=== PATIENT | male | born 1970 | race Caucasian/White ===

== ENCOUNTER 2018-08-27 10:56 | Observation (INO) | payer OTHER, SELFPAY ==
[2018-08-27] VITALS (11 sets, daily range): BP systolic 157–205; BP diastolic 107–127; PULSE 67–80; RESP 15–20; TEMP 36.4–36.9; O2SAT 96–99; BMI 28.4
--- NOTE | 2018-08-27 | DI.US.S_ITS ---
PROCEDURE: US CAROTID DOPPLER BI INDICATIONS: TIA TECHNIQUE: Color and pulse Doppler interrogation was performed of both carotid systems, with image documentation and velocity measurements. COMPARISON: None. FINDINGS: Stenosis calculations are based on SRU (Society of Radiologists in Ultrasound) criteria. Right side: Brachial blood pressure: Not obtained . Common carotid artery peak systolic velocity: 66 cm/sec. Internal carotid artery peak systolic velocity: 66 cm/sec. Internal carotid artery end diastolic velocity: 29 cm/sec. External carotid artery peak systolic velocity: 75 cm/sec. ICA/CCA peak systolic ratio: 1.0. Chen scale imaging description: No plaque Percent internal carotid artery stenosis: None. Vertebral artery: Flow direction is antegrade. Left side: Brachial blood pressure: 168/111 mm Hg. Common carotid artery peak systolic velocity: 68 cm/sec. Internal carotid artery peak systolic velocity: 60 cm/sec. Internal carotid artery end diastolic velocity: 23 cm/sec. External carotid artery peak systolic velocity: 64 cm/sec. ICA/CCA peak systolic ratio: 0.89. Chen scale imaging description: No plaque Percent internal carotid artery stenosis: None. Vertebral artery: Flow direction is antegrade. IMPRESSION: No ICA stenosis. Hypertension at the time of the examination. Dictated by: Mareclo Schwarz M.D. on 08/27/2018 at 16:43 Approved by: Marcelo Schwarz M.D. on 08/27/2018 at 16:45
--- NOTE | 2018-08-27 | DI.ECHO.S_ITS ---
[facility] +---------+ : : [address] : [address] : : : : [place], : : : : [place] [id number] : : : : Phone: [phone] Formerly [id number] Echocardiogram Report + + :Name: BRUNO OLSEN Study Date: 08/28/2018 Height: 69 in : :[facility] Weight: 192 lb : : Gender: Male BSA: 2.0 m2 : :: 1970 Age: 48 yrs BP: 144/98 mmHg: :Reason For Study: TIA : :Ordering Physician: [place] : :Hospitalist Performed By: Abdulaziz Campbell : :Referring: STEPHANIE FRAZIER : + + Interpretation Summary The left ventricle is normal in size. Left ventricular wall thickness is mildly increased. The ejection fraction is estimated to be 60-65%. The right ventricle is normal in size and function. Injection of contrast with Valsalva documented an interatrial shunt. -Overall this echo shows normal biventricular systolic function with evidence of hypertensive heart disease and small interatrial shunt, likely secondary to a PFO. -No prior echo for comparison. Procedure: A two-dimensional transthoracic echocardiogram with color flow and Doppler was performed. The study quality was technically good. There is no prior echocardiogram noted for this patient. A saline contrast injection was performed to assess for cardiac shunting. The patient was in normal sinus rhythm during the exam. Left Ventricle: The left ventricle is normal in size. Left ventricular wall thickness is mildly increased. Trabeculae near apex are visualized. No thrombus is observed. The ejection fraction is estimated to be 60-65%. There are no focal wall motion abnormalities. Diastolic parameters suggest a relaxation abnormality of the left ventricle, consistent with probable normal filling pressures. However, the tissue Doppler velocities of the mitral annulus are abnormally low. Right Ventricle: The right ventricle is normal in size and function. Atria: The left atrium is mildly dilated. Borderline right atrial enlargement. Injection of contrast with valsalva documented an interatrial shunt. Patient released valsalva at peak opacification; bubbles are then seen on left side w/in 3 beats. Mitral Valve: The mitral valve is normal in structure and function. There is no mitral regurgitation noted. Aortic Valve: The aortic valve is normal in structure and function. There is no aortic valve stenosis. There is trace aortic regurgitation. Tricuspid Valve: The tricuspid valve is normal. Pulmonary artery pressures cannot be estimated because of the lack of a measurable TR jet velocity. Pulmonic Valve: The pulmonic valve leaflets are thin and pliable; valve motion is normal. There is a trace or physiologic amount of pulmonic regurgitation. Great Vessels: The aortic root is normal size. The ascending aorta is mildly enlarged. The pulmonary artery is normal size. The IVC is of normal diameter and collapses greater than 50% with a sniff. This suggests a low right atrial pressure of 3 mm Hg. Pericardium/ Pleura There is no pericardial effusion. There is no pleural effusion. MMode/2D Measurements & Calculations LVIDd: 5.1 cm LVOT diam: 2.3 cm LVIDs: 3.8 cm Ao root diam: 3.2 cm IVSd: 1.4 cm asc Aorta Diam: 3.4 cm LVPWd: 1.0 cm Ao Arch Diam (Prox Trans): 3.1 cm LV dalton. diameter/BSA (cm/m^2): 2.5 LV sys. diameter/BSA (cm/m^2): 1.9 FS: 25.0 % EPSS: 0.31 cm LA A2 area: 21.4 cm2 RA long axis: 4.4 cm LA A4 area: 21.3 cm2 RA area: 18.2 cm2 LA length (vol): 5.1 cm RA vol: 64.3 ml LA vol: 75.9 ml RA : 31.7 ml/m2 LA vol index: 37.4 ml/m2 Doppler Measurements & Calculations Ao V2 max: 132.8 cm/sec LVOT Max Erick: 88.2 cm/sec Ao V2 mean: 96.8 cm/sec LV V1 max P.1 mmHg Ao V2 VTI: 25.2 cm LV V1 VTI: 17.5 cm Ao max P.1 mmHg Ao mean P.9 mmHg BRONSON(I,D): 2.8 cm2 MV E max erick: 49.7 cm/sec BRONSON(V,D): 2.7 cm2 MV A max erick: 63.6 cm/sec BRONSON indexed to BSA (cm^2/m^2): 1.4 MV E/A: 0.78 sev ratio: 0.69 Med Peak E' Erick: 5.6 cm/sec E/E' med: 8.9 Lat Peak E' Erick: 7.1 cm/sec E/E' lat: 7.0 E/e' average: 8.0 MV dec time: 0.19 sec PA V2 max: 132.2 cm/sec PA V2 mean: 80.4 cm/sec PA mean P.0 mmHg PA pr(Accel): 36.6 mmHg Electronically signed by: Sonny Barajas M.D. on Reading Physician:08/28/2018 12:18 PM
--- NOTE | 2018-08-27 11:04 | ED_ITS ---
HPI - Neuro Symptoms/Deficit General Chief Complaint: Neuro Symptoms/Deficit Stated Complaint: code stroke Time Seen by Provider: 08/27/18 11:03 Source: patient and EMS Mode of arrival: EMS Limitations: no limitations History of Present Illness HPI Narrative: Patient is a 48-year-old male here for evaluation of a potential stroke. Approximately 30 min prior to arrival here in the emergency department he was at work when he noted that he was having problems finding words to say and also slurring his words. He states that he had no other symptoms associated with this however he did acknowledge that he was having problems with the words. He states that he had a similar symptom last Saturday unsure how long the symptoms lasted. Before that never had any problems like this. Has not tried anything for prior to arrival. EMS reported his blood glucose level greater than 100. Related Data Home Medications Medication Instructions Recorded Confirmed aspirin 81 mg PO QPM 08/27/18 08/27/18 lisinopril 20 mg PO QPM 08/27/18 08/27/18 metoprolol succinate 25 mg PO BID 08/27/18 08/27/18 nitroglycerin [Nitrostat] 0.4 mg SUBLINGUAL PRN PRN 08/27/18 08/27/18 rosuvastatin 40 mg PO QPM 08/27/18 08/27/18 Allergies Allergy/AdvReac Type Severity Reaction Status Date / Time No Known Drug Allergies Allergy Verified 08/27/18 15:10 Review of Systems Review of Systems All systems reviewed & are unremarkable except as noted in HPI and below Neurologic Comments: Word-finding issues, slurring his words, tingling to his left forearm PFSH Medical History HLD (hyperlipidemia) (Acute) Slurred speech (Acute) HTN (hypertension) (Chronic) NIDIA (obstructive sleep apnea) (Chronic) Surgical History No pertinent past surgical history (Acute) Family History Father Hypertension Hyperlipidemia Atrial fibrillation Grandfather CAD (coronary artery disease) Social History household members: spouse Smoking Status: Never smoker alcohol intake: never Exam Initial Vital Signs Initial Vital Signs: Vital Signs Pulse Rate 75 08/27/18 11:30 Respiratory Rate 15 08/27/18 11:30 Blood Pressure 186/120 H 08/27/18 11:30 Pulse Oximetry 96 08/27/18 11:30 Const General: cooperative, healthy appearing, comfortable, well developed, well groomed and No acute distress Orientation: alert, awake and oriented x3 [facility] Head: normal to inspection and normocephalic Ears: hearing grossly normal bilaterally Nose: external nose normal Face and sinus: normal facial exam Mouth: oral mucosae normal Eyes Pupils: PERRL EOM: EOM intact bilaterally Neck Neck: normal visual inspection Resp Effort & Inspection: normal respiratory effort Auscultation: clear to auscultation bilaterally Cardio Rate: regular rate Rhythm: regular rhythm Heart Sounds: no murmurs Pulses: radial pulses present GI Inspection: non-distended Palpation: soft, No firm and No tender Back/Spine/Pelvis Back: No CVA tenderness Skin Lesions: no lesions Rashes: no rashes Neuro General: alert, awake, oriented x3, no meningeal signs, not confused and not obtunded Cranial Nerves: CN's II-XI intact bilaterally, PERRL and tongue midline Cognition: normal cognition Speech: speech normal and no expressive aphasia (Did not have an expressive aphasia however 1 point did seem to the stumble over his words) Motor: muscle tone normal throughout, strength 5/5 throughout and no movement abnormalities noted Sensory Exam: no sensory deficits noted Coordination: [id number] test normal and [id number] test normal Extrem General: normal to inspection, capillary refill normal and No edema Psych Appearance: grossly normal and well kempt Scores ABCD2 Age >= 60 years: no Initial BP. Either SBP >= 140 or DBP >= 90.: yes Clinical features of the TIA: speech disturbance without weakness Duration of symptoms: 10-59 minutes History of diabetes: no ABCD2 Score: 3 NIH Stroke Scale Level of Conciousness: Alert, keenly responsive Ask month/age: Answers both questions correctly. Open/close eyes, close hand: Performs both tasks correctly Best gaze horizontal: Normal Visual moses: No visual loss Facial palsy: Normal symetrical movement Left arm drift: No drift for full 10 sec Right arm drift: No drift for full 10 sec Left leg drift: No drift for full 10 sec Right leg drift: No drift for full 10 sec Limb ataxia: Absent Sensory on face/arms/legs: Normal, no sensory loss Best language: No aphasia, normal Dysarthria: Normal Extinction or inattention: No abnormality Total NIH Stroke scale score: 0 Course Orders Ordered: ED Orders 08/27/18 11:02 Basic Metabolic Panel Stat Complete Blood Count AUTO DIFF Stat Ethanol (ETOH) Stat 08/27/18 11:10 EKG-12 Lead Stat 08/27/18 11:20 CT angio head and neck Stat CT head/brain wo con Stat 08/27/18 15:18 Education, smoking cessation ONGOING 08/27/18 15:37 Consult to Respiratory Therapy Evaluate & Treat 08/27/18 17:02 Hemoglobin A1C % Routine Lipid Panel Routine TSH [Thyroid Stimulating Hormone] Routine 08/28/18 05:00 Complete Blood Count AUTO DIFF Routine Comprehensive Metabolic Panel Routine Aspirin (Aspirin Ec) 81 mg PO DAILY LUCIEN Labetalol HCl (Trandate) 10 mg IV Q6H PRN PRN Reason: BP >180/100 Lisinopril (Zestril) 20 mg PO DAILY LUCIEN Metoprolol Succinate (Toprol Xl) 25 mg PO BID LUCIEN Nitroglycerin (Nitrostat) 0.4 mg SL [id number] PRN PRN Reason: Chest Pain Rosuvastatin Calcium (Crestor) 40 mg PO BEDTIME LUCIEN Discontinued Medications Aspirin (Aspirin Chew) 324 mg PO NOW ONE Stop: 08/27/18 13:50 Last Admin: 08/27/18 13:57 Dose: 324 mg Sodium Chloride (Normal Saline 0.9%) 1,000 mls @ 1,000 mls/hr IV BOLUS ONE Stop: 08/27/18 11:54 Last Infusion: 08/27/18 13:57 Dose: 0 mls/hr Infusion: 08/27/18 13:41 Dose: 1,000 mls/hr Admin: 08/27/18 12:30 Dose: 1,000 mls/hr Vital Signs - 8 hr 08/27/18 11:30 08/27/18 12:00 08/27/18 12:30 Temperature Pulse Rate 75 80 79 Respiratory Rate 15 18 18 Blood Pressure Blood Pressure [Right Arm] 186/120 H 205/119 H 165/127 H Pulse Oximetry 96 99 98 08/27/18 13:00 08/27/18 13:30 08/27/18 14:15 Temperature 98.4 F Pulse Rate 77 74 68 Respiratory Rate 15 18 18 Blood Pressure 168/111 H Blood Pressure [Right Arm] 170/124 H 167/117 H Pulse Oximetry 98 08/27/18 15:35 Temperature 97.8 F Pulse Rate 67 Respiratory Rate 20 Blood Pressure 158/116 H Blood Pressure [Right Arm] Pulse Oximetry 97 MDM - Neuro Symptoms/Deficit Lab Data Attestation: I reviewed the patient's lab results. Result diagrams: 08/27/18 11:02 08/27/18 11:02 Lab Results 08/27/18 08/27/18 08/27/18 Range/Units 11:02 11:02 Unknown WBC 6.8 (4.5-11.0) X10^3/uL RBC 5.38 (4.5-5.9) X10^6/uL Hgb 15.5 (13.5-17.5) g/dL Hct 44.5 (41-53) % MCV 82.6 (80-100) fL MCH 28.8 (26-34) PG MCHC 34.9 (30-36) % RDW 12.6 (11.6-14.8) % Plt Count 380 (150-400) X10^3/uL Neut % (Auto) 72.0 (50-75) % Lymph % (Auto) 20.3 L (25-40) % [place] % (Auto) 6.8 (3-14) % Eos % (Auto) 0.7 L (2-4) % Baso % (Auto) 0.2 (0-2) % Neut # (Auto) 4900 (3677-9313) /uL PT 11.2 (10.1-12.7) SECONDS INR 1.0 (0.9-1.3) APTT 31 (26.4-36.2) SECONDS Sodium 142 (137-145) mmol/L Potassium 3.7 (3.4-5.1) mmol/L Chloride 102 (98-107) mmol/L Carbon Dioxide 28 (22-32) mmol/L BUN 13 (9-20) mg/dL Creatinine 0.80 (0.66-1.25) mg/dL Estimated GFR > 60.0 (>60) mL/min BUN/Creatinine Ratio 16.3 (6-22) Glucose 115 H (70-100) mg/dL Calcium 9.7 (8.4-10.2) mg/dL Ethyl Alcohol < 10 mg/dL Point of Care Testing Glucose POC 101 Urine Dip Bedside Urine Glucose Negative Bedside Urine Bilirubin - Negative Bedside Urine Ketone - Negative Urine Specific [place] 1.015 Bedside Urine Occult Blood - Negative Bedside Urine pH 7.5 Bedside Urine Protein - Negative Bedside Urine Urobilinogen - Negative Bedside Urine Nitrite - Negative Bedside Urine Leukocytes - Negative Esterase Imaging Data CT scan - head: Radiologist's impression: PROCEDURE: CT HEAD/BRAIN WO CON INDICATIONS: Stroke-Possible TPA TECHNIQUE: Noncontrast 4.5 mm thick angled axial sections acquired from the foramen magnum to the vertex, with coronal and sagittal reformats. For radiation dose reduction, the following was used: automated exposure control, adjustment of mA and/or kV according to patient size. COMPARISON: [facility], CT, CT ANGIO HEAD AND NECK, 08/27/2018, 10:58. FINDINGS: Image quality: Excellent. CSF spaces: Basal cisterns are patent. No extra-axial fluid collections. 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 Ventricles are normal in size and shape. Brain: No midline shift. Subcentimeter hyperdense focus in the left subinsular and white matter image 15 series 2, technically indeterminate. No intracranial masses or hemorrhage. Chen-white matter interface is normal. Skull and face: Calvarium and visualized facial bones are intact, without suspicious lesions. Sinuses: Visualized sinuses and mastoids are clear. IMPRESSION: No acute intracranial process. Findings personally telephoned and discussed with Dr. Red in the emergency department 1133 hours on 08/27/18. Dictated by: Marcelo Schwarz M.D. on 08/27/2018 at 11:29 Approved by: Marcelo Schwarz M.D. on 08/27/2018 at 11:34 CTA of head and neck: Radiologist's impression: PROCEDURE: CT ANGIO HEAD AND NECK INDICATIONS: Aphasia. Left sided weakness TECHNIQUE: Pre-contrast 4.5 mm thick sections acquired from the foramen magnum to the vertex. After the administration of intravenous contrast, 1 mm thick sections acquired from the aortic arch through the [place] of Garcia. Post-contrast 4.5 mm thick sections then re- acquired from the foramen magnum to the vertex. 3-dimensional maximum-intensity- projection (MIP) and/or volume rendering reformats were acquired of the central intracranial vasculature and neck separately. COMPARISON: None. FINDINGS: Image quality: Excellent. BRAIN: CSF spaces: Ventricles are normal in size and shape. Basal cisterns are patent. No extra-axial fluid collections. Brain: No midline shift. No intracranial bleeds or masses. Chen-white matter interface appears intact. Incidental posterior fossa arachnoid cyst. Skull and face: Calvarium and facial bones appear intact, without suspicious lesions. Orbits appear normal. Sinuses: Sinuses and mastoids are clear. HEAD CT ANGIOGRAPHY: Anterior circulation: Intracranial internal carotid arteries are normal in size and flow. The flow within the paired anterior cerebral arteries is normal and symmetric. The flow within the middle cerebral arteries is normal and symmetric. The anterior communicating artery is seen. No aneurysms are seen. Posterior circulation: Visualized portions of the vertebral arteries demonstrate normal caliber, and join to form a normal appearing basilar artery. Flow within the posterior cerebral arteries is normal and symmetric. No aneurysms are seen. NECK CT ANGIOGRAPHY: Carotid system: The great vessels demonstrate a bovine anatomy as they arise from the aortic arch. The origins of the common carotid arteries appear patent. The common carotid arteries demonstrate normal caliber and courses. Minimal left carotid calcification is present in The bifurcation regions are both widely patent. The internal carotid arteries demonstrate normal calibers and courses. Posterior circulation: The origins of the vertebral arteries both appear widely patent. The more superior extracranial portions of both vertebral arteries also demonstrate normal courses and calibers. They join to form a normal appearing basilar artery. Soft tissues: Visualized neck soft tissues demonstrate no suspicious abnormalities. Bones: Straightening of the normal cervical lordosis.. IMPRESSION: No intracranial focal stenosis or occlusion identified. No evidence of focal ICA stenosis. Minimal left carotid calcification. Any quantitative measurements of stenosis were performed using NASCET criteria. Dictated by: Marcelo Schwarz M.D. on 08/27/2018 at 11:36 ECG Data Attestation: I personally reviewed and interpreted this ECG as follows: Prior ECG tracings: not available for review Interpretation: Sinus rhythm Ventricular rate of 78 Normal axis LVH Normal QRS No ST T wave changes MDM Narrative Medical decision making narrative: Patient's blood glucose unremarkable. CT of the head and CT of the head and neck unremarkable. Patient also with improvement/resolution of symptoms while being here in the emergency department. His NIH score 0. No indication for thrombolytics. When he arrived was hypertensive with systolic blood pressure greater than 200s however it did improve without any pharmacologic intervention. Patient has a ABCD2 score of 3. NIH score 0. He was given full-dose aspirin here in the emergency department. Given the very similar symptoms that happened last Saturday which his eventually stated lasted less than 60 min and this symptoms again today I do have concern for TIA. I discussed the case with Dr. Romo will admit the patient. I discussed admission with the patient and his were at bedside expressed understanding and agreement. Critical Care Time Critical Care Time: Yes Total Critical Care Time: 40 Attestation: The high probability of a clinically significant, sudden or life threatening deterioration of the neurologic system(s) required my full and direct attention , intervention and personal management. The aggregate critical care time was [] minutes. This time is in addition to time spent performing reported procedures but includes the following: [] Data Review and interpretation [] Patient assessment and monitoring of vital signs [] Documentation [] Medication orders and management Correlation of care Discharge Plan Departure Patient Disposition: Admitted as Observation Clinical Impression: Transient cerebral ischemia, Hypertension Discharge Date/Time: 08/27/18 14:52 Interventions: ED Discharge Assessment Last Done: 08/27/18 14:06 Admit Date/Time: 08/27/18 13:03 Admit Provider: Addie Romo
[2018-08-27 11:08] LABS: Add Manual Diff / Slide Review NO; Basophils Percent Auto 0.2 % (0-2); Eosinophils Percent Auto 0.7 % (2-4); Hematocrit 44.5 % (41-53); Hemoglobin 15.5 g/dL (13.5-17.5); Lymphocytes Percent Auto 20.3 % (25-40); Mean Corpuscular HGB Conc 34.9 % (30-36); Mean Corpuscular Hemoglobin 28.8 PG (26-34); Mean Corpuscular Volume 82.6 fL (80-100); Monocytes Percent Auto 6.8 % (3-14); Neutrophils Absolute Auto 4900 /uL (3000-5900); Platelet Count 380 X10^3/uL (150-400); Red Blood Cell Count 5.38 X10^6/uL (4.5-5.9); Red Cell Distribution Width 12.6 % (11.6-14.8); White Blood Cell Count 6.8 X10^3/uL (4.5-11.0)
[2018-08-27 11:11] LABS: Prothrombin Time 11.2 SECONDS (10.1-12.7)
[2018-08-27 11:14] LABS: PTT Partial Thromboplastin Tim 31 SECONDS (26.4-36.2)
[2018-08-27 11:20] LABS: BUN Creatinine Ratio 16.3 (6-22); Blood Urea Nitrogen 13 mg/dL (9-20); Calcium 9.7 mg/dL (8.4-10.2); Carbon Dioxide 28 mmol/L (22-32); Chloride 102 mmol/L (98-107); Estimated Glomerular Filt Rate > 60.0 mL/min (>60); Ethanol (ETOH) < 10 mg/dL; Glucose 115 mg/dL (70-100); HEMOLYSIS < 15 (0-50); Potassium 3.7 mmol/L (3.4-5.1); Sodium 142 mmol/L (137-145)
--- NOTE | 2018-08-27 11:20 | DI.CT.S_ITS ---
PROCEDURE: CT ANGIO HEAD AND NECK INDICATIONS: Aphasia. Left sided weakness TECHNIQUE: Pre-contrast 4.5 mm thick sections acquired from the foramen magnum to the vertex. After the administration of intravenous contrast, 1 mm thick sections acquired from the aortic arch through the [place] of Garcia. Post-contrast 4.5 mm thick sections then re-acquired from the foramen magnum to the vertex. 3-dimensional isvxnje-mujgovuxq-cccplovlcs (MIP) and/or volume rendering reformats were acquired of the central intracranial vasculature and neck separately. COMPARISON: None. FINDINGS: Image quality: Excellent. BRAIN: CSF spaces: Ventricles are normal in size and shape. Basal cisterns are patent. No extra-axial fluid collections. Brain: No midline shift. No intracranial bleeds or masses. Chen-white matter interface appears intact. Incidental posterior fossa arachnoid cyst. Skull and face: Calvarium and facial bones appear intact, without suspicious lesions. Orbits appear normal. Sinuses: Sinuses and mastoids are clear. HEAD CT ANGIOGRAPHY: Anterior circulation: Intracranial internal carotid arteries are normal in size and flow. The flow within the paired anterior cerebral arteries is normal and symmetric. The flow within the middle cerebral arteries is normal and symmetric. The anterior communicating artery is seen. No aneurysms are seen. Posterior circulation: Visualized portions of the vertebral arteries demonstrate normal caliber, and join to form a normal appearing basilar artery. Flow within the posterior cerebral arteries is normal and symmetric. No aneurysms are seen. NECK CT ANGIOGRAPHY: Carotid system: The great vessels demonstrate a bovine anatomy as they arise from the aortic arch. The origins of the common carotid arteries appear patent. The common carotid arteries demonstrate normal caliber and courses. Minimal left carotid calcification is present in The bifurcation regions are both widely patent. The internal carotid arteries demonstrate normal calibers and courses. Posterior circulation: The origins of the vertebral arteries both appear widely patent. The more superior extracranial portions of both vertebral arteries also demonstrate normal courses and calibers. They join to form a normal appearing basilar artery. Soft tissues: Visualized neck soft tissues demonstrate no suspicious abnormalities. Bones: Straightening of the normal cervical lordosis.. IMPRESSION: No intracranial focal stenosis or occlusion identified. No evidence of focal ICA stenosis. Minimal left carotid calcification. Any quantitative measurements of stenosis were performed using NASCET criteria. Dictated by: Marcelo Schwarz M.D. on 08/27/2018 at 11:36 Approved by: Marcelo Schwarz M.D. on 08/27/2018 at 11:44
--- NOTE | 2018-08-27 11:20 | DI.CT.S_ITS ---
PROCEDURE: CT HEAD/BRAIN WO CON INDICATIONS: Stroke-Possible TPA TECHNIQUE: Noncontrast 4.5 mm thick angled axial sections acquired from the foramen magnum to the vertex, with coronal and sagittal reformats. For radiation dose reduction, the following was used: automated exposure control, adjustment of mA and/or kV according to patient size. COMPARISON: [facility], CT, CT ANGIO HEAD AND NECK, 08/27/2018, 10:58. FINDINGS: Image quality: Excellent. CSF spaces: Basal cisterns are patent. No extra-axial fluid collections. 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 Ventricles are normal in size and shape. Brain: No midline shift. Subcentimeter hyperdense focus in the left subinsular and white matter image 15 series 2, technically indeterminate. No intracranial masses or hemorrhage. Chen-white matter interface is normal. Skull and face: Calvarium and visualized facial bones are intact, without suspicious lesions. Sinuses: Visualized sinuses and mastoids are clear. IMPRESSION: No acute intracranial process. Findings personally telephoned and discussed with Dr. Red in the emergency department 1133 hours on 08/27/18. Dictated by: Marcelo Schwarz M.D. on 08/27/2018 at 11:29 Approved by: Marcelo Schwarz M.D. on 08/27/2018 at 11:34
[2018-08-27] MEDS: SODIUM CHLORIDE 0.9% 1,000 ML 1000 ML IV (12:30)
--- NOTE | 2018-08-27 12:39 | PC.NURSE ---
Pt reports L upper extremity tingling/numbness improved.
--- NOTE | 2018-08-27 12:39 | PC.NURSE ---
dr holland made aware of bp 165/127 no new orders at this time.
[2018-08-27] MEDS: ASPIRIN 81 MG TAB 324 MG PO (13:57)
--- NOTE | 2018-08-27 15:13 | PC.NURSE ---
1415 Patient arrived to floor, oriented to room and call light. Denies neurological symptoms, communicating and speaking without difficulty. at bedside. Awaiting to be seen by MD. Call light placed within reach.
--- NOTE | 2018-08-27 15:20 | PM.HP.1 ---
History of Present Illness Date Patient Seen: 08/27/18 Time Patient Seen: 15:21 Chief complaint: SLURRED SPEECH Narrative: 48-year-old male with past medical history of hypertension, hyperlipidemia, obstructive sleep apnea on CPAP presented to emergency department with slurred speech. As per patient, he was at work earlier this morning, when he began to experience difficulty with finding words and communicating with his coworkers. Patient believes he also experienced some confusion, as he has trouble recalling the events. Per his coworkers, patient was honking the car horn to get their attention, which patient does not recall. As per coworkers, patient did not have any seizure-like activity, bowel or bladder control loss, or loss of consciousness. Ambulance was summoned, and patient presented to emergency department at [facility]. At the hospital he was noted to have slurred speech, which resolved within few minutes on arrival, lasting a total of 1 hr and 15 min. Patient states that he experienced a similar episode of slurred speech 4 days ago, which lasted 5 min and was witnessed by his . Patient denies any blurry vision, dizziness, headache. Denies any sore throat, cough, shortness of breath, chest pain. Denies any nausea, vomiting, abdominal pain, diarrhea, constipation. Denies any symptoms. In the emergency department patient's vitals were stable with the exception of blood pressure, which was 205/119, but subsequently decreased to 167/117 on its own. Lab work was done and revealed normal BMP and normal CBC. Alcohol levels were negative. CT head revealed no acute intracranial process. CTA head and neck showed no occlusions or stenosis. Patient was admitted for observation and further workup of what seems to be transient ischemic attack. Patient History Medical History HLD (hyperlipidemia) (Acute) Slurred speech (Acute) HTN (hypertension) (Chronic) NIDIA (obstructive sleep apnea) (Chronic) Family & Social History Social History: household members spouse Prior Living Arrangements House Safety & Behavioral: Feels Safe in Current Yes Environment Been Physically Hurt or No Threatened By a Person Suicidal Ideation Description None Suicide Plan Description No Plan Tobacco & Substance use: Smoking Status Never smoker alcohol intake occasional ETOH Substance Use Type does not use Meds Home Medications Medication Instructions Recorded Confirmed Type aspirin 81 mg PO QPM 08/27/18 08/27/18 History lisinopril 20 mg PO QPM 08/27/18 08/27/18 History metoprolol succinate 25 mg PO BID 08/27/18 08/27/18 History nitroglycerin [Nitrostat] 0.4 mg SUBLINGUAL PRN PRN 08/27/18 08/27/18 History rosuvastatin 40 mg PO QPM 08/27/18 08/27/18 History Allergies Allergy/AdvReac Type Severity Reaction Status Date / Time No Known Drug Allergies Allergy Verified 08/27/18 15:10 Review of Systems Review of Systems Ten point review of systems was conducted and found negative with the exceptions of as above Exam Vital Signs (past 8 hours): - 08/27/18 11:30 08/27/18 12:00 08/27/18 12:30 Pulse Rate 75 80 79 Respiratory Rate 15 18 18 Blood Pressure [Right Arm] 186/120 H 205/119 H 165/127 H Pulse Oximetry 96 99 98 08/27/18 13:00 08/27/18 13:30 Pulse Rate 77 74 Respiratory Rate 15 18 Blood Pressure [Right Arm] 170/124 H 167/117 H Pulse Oximetry Oxygen Delivery Method Room Air Narrative Exam Narrative: General: No acute distress, AAO x3 HEENT: PERRLA bilaterally, EOMI bilaterally, moist mucous membranes. Clear speech Neck: Supple, no LAD or JVD CV: Regular rate rhythm, no murmurs or gallops Respiratory: Clear to auscultation bilaterally, no wheezes or crackles GI: Positive bowel sounds, no organomegaly, no tenderness to palpation Musculoskeletal: Normal range of motion in all extremities Extremities: No edema Skin: No lesions or bruising Neuro: No focal deficits, cranial nerves 2-12 are intact Psych: Mood appropriate Objective Labs Result Diagrams: 08/27/18 11:02 08/27/18 11:02 Labs: Laboratory Results - last 24 hr 08/27/18 08/27/18 08/27/18 11:02 11:02 Unknown WBC 6.8 RBC 5.38 Hgb 15.5 Hct 44.5 MCV 82.6 MCH 28.8 MCHC 34.9 RDW 12.6 Plt Count 380 Neut % (Auto) 72.0 Lymph % (Auto) 20.3 L [place] % (Auto) 6.8 Eos % (Auto) 0.7 L Baso % (Auto) 0.2 Neut # (Auto) 4900 PT 11.2 INR 1.0 APTT 31 Sodium 142 Potassium 3.7 Chloride 102 Carbon Dioxide 28 BUN 13 Creatinine 0.80 Estimated GFR > 60.0 BUN/Creatinine Ratio 16.3 Glucose 115 H Calcium 9.7 Ethyl Alcohol < 10 Assessment & Plan Plan: Assessment/Plan Narrative: 48-year-old male with past medical history of hypertension, hyperlipidemia, obstructive sleep apnea on CPAP presented to emergency department with slurred speech, which resolved after 1 hr and 15 min. Was found to be with elevated BP. Admitted for TIA workup and further management of high blood pressure. 1. Slurred speech and confusion -likely due to TIA versus malignant hypertension -blood pressure now improved -CT head negative for acute intracranial processes -CTA head and neck negative for any occlusions or stenosis -patient is hemodynamically stable, with normal laboratory workup -EKG showed normal sinus rhythm no ST changes -will admit as observation and monitor on telemetry -will order echocardiogram, lipid panel, hemoglobin A1c, and TSH -resume rosuvastatin, metoprolol, lisinopril, and aspirin 2. Malignant hypertension -with possible effects mentation changes, such as slurred speech and confusion -blood pressure on admission 205/119, now 167/117 -resume lisinopril 20 mg p.o. q.a.m. and metoprolol succinate 25 mg p.o. b.i.d. -labetalol 10 mg IV as needed q.6 hours as needed for systolic blood pressure over 180 and diastolic blood pressure over 100 -continue to monitor blood pressure 3. Hyperlipidemia -lipid panel pending -resume reserve a statin 40 mg Q p.m. 4. NIDIA -on CPAP at home -respiratory therapy consult for continuation of CPAP DVT prophylaxis with SCD boots and encouraging ambulation 40 min spent evaluating and treating the patient
[2018-08-27 17:42] LABS: Cholesterol 201 mg/dL (140-199); HDL Cholesterol 63 mg/dL (40-60); LDL Cholesterol Calculated 127 mg/dL (<100); Triglycerides 54 mg/dL (35-150)
[2018-08-27 17:45] LABS: Hemoglobin A1C% w Est Avg Glu 5.4 % (4.0-6.0)
[2018-08-27 18:12] LABS: Thyroid Stimulating Hormone 0.49 uIU/mL (0.47-4.68)
[2018-08-27] MEDS: METOPROLOL ER 25 MG TABLET PO (20:35)
[2018-08-27] MEDS: ROSUVASTATIN 10 MG TABLET 40 MG PO (20:36)
[2018-08-28 00:25] VITALS: BP 149/69; PULSE 63; RESP 16; TEMP 36.4; O2SAT 96
[2018-08-28 05:20] VITALS: BP 140/89; PULSE 65; RESP 16; TEMP 36.4
[2018-08-28 06:34] LABS: Add Manual Diff / Slide Review NO; Basophils Percent Auto 0.6 % (0-2); Hematocrit 41.7 % (41-53); Hemoglobin 14.6 g/dL (13.5-17.5); Lymphocytes Percent Auto 26.7 % (25-40); Mean Corpuscular Hemoglobin 28.8 PG (26-34); Mean Corpuscular Volume 82.3 fL (80-100); Monocytes Percent Auto 8.7 % (3-14); Neutrophils Absolute Auto 2900 /uL (3000-5900); Platelet Count 330 X10^3/uL (150-400); Red Blood Cell Count 5.06 X10^6/uL (4.5-5.9); Red Cell Distribution Width 12.6 % (11.6-14.8); White Blood Cell Count 4.7 X10^3/uL (4.5-11.0)
[2018-08-28 06:49] LABS: Alanine Aminotransferase 36 IU/L (21-72); Albumin 4.1 g/dL (3.5-5.0); Albumin Globulin Ratio 1.4 (1.0-2.8); Alkaline Phosphatase 71 U/L (38-126); Aspartate Aminotransferase 27 IU/L (17-59); BUN Creatinine Ratio 18.6 (6-22); Bilirubin Total 0.6 mg/dL (0.2-1.3); Blood Urea Nitrogen 13 mg/dL (9-20); Calcium 9.1 mg/dL (8.4-10.2); Carbon Dioxide 24 mmol/L (22-32); Chloride 102 mmol/L (98-107); Estimated Glomerular Filt Rate > 60.0 mL/min (>60); Glucose 97 mg/dL (70-100); HEMOLYSIS < 15 (0-50); Potassium 3.9 mmol/L (3.4-5.1); Sodium 137 mmol/L (137-145); Total Protein 7.1 g/dL (6.3-8.2)
[2018-08-28] MEDS: ASPIRIN EC 81 MG TABLET PO (08:56)
[2018-08-28] MEDS: LISINOPRIL 20 MG TABLET PO (08:56)
[2018-08-28] MEDS: METOPROLOL ER 25 MG TABLET PO (08:56)
[2018-08-28 09:00] VITALS: BP 144/98; PULSE 72; RESP 18; TEMP 36.4; O2SAT 97
--- NOTE | 2018-08-28 10:30 | P.DS_ITS ---
History of Present Illness Chief complaint: SLURRED SPEECH Narrative: 48-year-old male with past medical history of hypertension, hyperlipidemia, obstructive sleep apnea on CPAP presented to emergency department with slurred speech. As per patient, he was at work earlier this morning, when he began to experience difficulty with finding words and communicating with his coworkers. Patient believes he also experienced some confusion, as he has trouble recalling the events. Per his coworkers, patient was honking the car horn to get their attention, which patient does not recall. As per coworkers, patient did not have any seizure-like activity, bowel or bladder control loss, or loss of consciousness. Ambulance was summoned, and patient presented to emergency department at [facility]. At the hospital he was noted to have slurred speech, which resolved within few minutes on arrival, lasting a total of 1 hr and 15 min. Patient states that he experienced a similar episode of slurred speech 4 days ago, which lasted 5 min and was witnessed by his . Patient denies any blurry vision, dizziness, headache. Denies any sore throat, cough, shortness of breath, chest pain. Denies any nausea, vomiting, abdominal pain, diarrhea, constipation. Denies any symptoms. Discharge Providers Date of admission: 08/27/18 13:03 Consults: 08/27/18 15:37 Consult to Respiratory Therapy Evaluate & Treat Comment: CPAP MANAGEMENT Physician Instructions: Evaluate and treat Discharge provider: Addie Romo MD Discharge Date: 08/28/18 Summary Discharge Diagnosis: TIA Malignant HTN, resolved HTN HLD, uncontrolled NIDIA Hospital Course: In the emergency department patient's vitals were stable with the exception of blood pressure, which was 205/119, but subsequently decreased to 167/117 on its own. Lab work was done and revealed normal BMP and normal CBC. Alcohol levels were negative. CT head revealed no acute intracranial process. CTA head and neck showed no occlusions or stenosis. Patient was admitted for observation and further workup of what seems to be transient ischemic attack. Carotid duplex done and did not reveal any stenosis either. HbA1c normal. TSH normal. Lipid panel came back with Elevated LDL, HDL and, and Cholesterol, but patient is already on high dose Statin. BP has remained slightly elevated throughout hospital admission, prompting increase in Lisinopril to 40mg PO Daily at discharge. Patient's ECHO was done but not read at the time of discharge. He was told to follow up with with his PCP with 1 week of discharge for ECHO results and BP management. Exam Vital Signs (past 8 hours): - 08/28/18 05:20 Temperature 97.6 F Pulse Rate 65 Respiratory Rate 16 Blood Pressure 140/89 Oxygen Delivery Method Room Air Narrative Exam Narrative: General: No acute distress, AAO x3 HEENT: PERRLA bilaterally, EOMI bilaterally, moist mucous membranes. Clear speech Neck: Supple, no LAD or JVD CV: Regular rate rhythm, no murmurs or gallops Respiratory: Clear to auscultation bilaterally, no wheezes or crackles GI: Positive bowel sounds, no organomegaly, no tenderness to palpation Musculoskeletal: Normal range of motion in all extremities Extremities: No edema Skin: No lesions or bruising Neuro: No focal deficits, cranial nerves 2-12 are intact Psych: Mood appropriate Objective Labs Result Diagrams: 08/28/18 05:43 08/28/18 05:43 Labs: Laboratory Results - last 24 hr 08/27/18 08/27/18 08/27/18 11:02 11:02 17:02 WBC 6.8 RBC 5.38 Hgb 15.5 Hct 44.5 MCV 82.6 MCH 28.8 MCHC 34.9 RDW 12.6 Plt Count 380 Neut % (Auto) 72.0 Lymph % (Auto) 20.3 L [place] % (Auto) 6.8 Eos % (Auto) 0.7 L Baso % (Auto) 0.2 Neut # (Auto) 4900 PT INR APTT Sodium 142 Potassium 3.7 Chloride 102 Carbon Dioxide 28 BUN 13 Creatinine 0.80 Estimated GFR > 60.0 BUN/Creatinine Ratio 16.3 Glucose 115 H Hemoglobin A1c 5.4 Calcium 9.7 Total Bilirubin AST ALT Alkaline Phosphatase Total Protein Albumin Globulin Albumin/Globulin Ratio Triglycerides Cholesterol LDL Cholesterol, Calc HDL Cholesterol TSH Ethyl Alcohol < 10 08/27/18 08/27/18 08/27/18 17:02 17:02 Unknown WBC RBC Hgb Hct MCV MCH MCHC RDW Plt Count Neut % (Auto) Lymph % (Auto) [place] % (Auto) Eos % (Auto) Baso % (Auto) Neut # (Auto) PT 11.2 INR 1.0 APTT 31 Sodium Potassium Chloride Carbon Dioxide BUN Creatinine Estimated GFR BUN/Creatinine Ratio Glucose Hemoglobin A1c Calcium Total Bilirubin AST ALT Alkaline Phosphatase Total Protein Albumin Globulin Albumin/Globulin Ratio Triglycerides 54 Cholesterol 201 H LDL Cholesterol, Calc 127 H HDL Cholesterol 63 H TSH 0.49 Ethyl Alcohol 08/28/18 08/28/18 05:43 05:43 WBC 4.7 RBC 5.06 Hgb 14.6 Hct 41.7 MCV 82.3 MCH 28.8 MCHC 35.0 RDW 12.6 Plt Count 330 Neut % (Auto) 62.0 Lymph % (Auto) 26.7 [place] % (Auto) 8.7 Eos % (Auto) 2.0 Baso % (Auto) 0.6 Neut # (Auto) 2900 L PT INR APTT Sodium 137 Potassium 3.9 Chloride 102 Carbon Dioxide 24 BUN 13 Creatinine 0.70 Estimated GFR > 60.0 BUN/Creatinine Ratio 18.6 Glucose 97 Hemoglobin A1c Calcium 9.1 Total Bilirubin 0.6 AST 27 ALT 36 Alkaline Phosphatase 71 Total Protein 7.1 Albumin 4.1 Globulin 3.0 Albumin/Globulin Ratio 1.4 Triglycerides Cholesterol LDL Cholesterol, Calc HDL Cholesterol TSH Ethyl Alcohol Discharge Plan Discharge Plan Discharge Problem: Transient cerebral ischemia, Hypertension Patient Disposition: Home Discharge Med Rec/Prescriptions Prescriptions: Continue aspirin 81 mg Tablet,Delayed Release (Dr/Ec) 81 mg PO QPM RF: 0 nitroglycerin [Nitrostat] 0.4 mg Tablet, Sublingual 0.4 mg Sublingual PRN PRN (Reason: Chest Pain) RF: 0 metoprolol succinate 25 mg Tablet Extended Release 24 Hr 25 mg PO BID RF: 0 rosuvastatin 40 mg Tablet 40 mg PO QPM RF: 0 Changed lisinopril 20 mg Tablet 40 mg PO QPM 30 Days Qty: 0 RF: 0 Follow up/Referrals: Kenny Hernandez RN [Emergency Nurse] - 1 Week Provider Discharge Instructions Diet: Low-sodium Liquid consistency: Normal/Thin Food texture: Regular Discharge Data Attending Provider: Addie Romo Admit Date/Time: 08/27/18 13:03
[2018-08-28 12:03] VITALS: O2SAT 98
--- NOTE | 2018-08-28 15:08 | CM.DANOTE ---
Discharge Planning/Care Management DCP: assessment: case received this morning, EMR reviewed and discussed in morning Team Rounds with Dr. Romo. She noted that pt might d/c later this afternoon; ECHO was pending as well as workup in general. Pt had admitted through the ER as a code stroke. Documentation showed that pt is a 48 year old male who admitted yesterday afternoon to care of hospitalist team. Payer: [employer]. Went to room at 1500 to check in with pt. No d/c order had yet been identified. Noted room empty and cleaned. Review again of EMR shows that Dr. Romo did d/c pt earlier today with time of d/c noted 11:55. ECHO had been done but not read. Medications were adjusted. Pt was to followup with his PCP. (he and his live in [place].) LEILA COLLADO RN is updated. LEILA Discharge Assessment Start: 08/28/18 15:06 Freq: Status: Active Protocol: Document 08/28/18 15:07 ITV (Rec: 08/28/18 15:08 ITV [id number]) Discharge Planning Assessment Advance Directives? No History Provided By Medical Record Prior Living Arrangements House Household Members spouse If patient plan is home with home health n/a see dcp note : Has signed face to face form been completed? Review Status In Process Next Review Type Continued Stay Review
== END 2018-08-28 11:55 | disposition home or self-care (01) ==
LOC: ED 12:09 → AC 13:03
PROVIDERS: Admitting Provider Internal Medicine; Emergency Provider Emergency Medicine; Visit Provider Internal Medicine
DX: G45.9 Transient cerebral ischemic attack, unspecified (principal); R29.818 Other symptoms and signs involving the nervous system; E78.5 Hyperlipidemia, unspecified; R47.81 Slurred speech; I10 Essential (primary) hypertension; G47.33 Obstructive sleep apnea (adult) (pediatric)
CPT/HCPCS: 36415; 70450; 70496; 70498; 80048; 80053; 80061; 80320; 81003; 82962; 83036; 84443; 85025; 85610; 85730; 93005; 93306; 93880; 96360; 99285; 99291; G0378; Q9967